=== PATIENT | female | born 1965 | race Caucasian/White ===

== ENCOUNTER 2024-05-28 12:47 | Emergency (ER) | payer BC, SELFPAY ==
[2024-05-28] VITALS (7 sets, daily range): BP systolic 114–153; BP diastolic 66–92; BMI 27.9
[2024-05-28 14:37] LABS: % Basophils 0.6 % (0-2); % Eosinophils 1.1 % (0-6); % Immature Granulocytes 0.1 % (0-0.5); % Lymphocytes 35.3 % (20.5-51.1); % Monocytes 6.6 % (1.7-9.3); % Neutrophils 56.3 % (42.2-75.2); Absolute Eosinophils 0.1 10^3/uL (0-0.7); Absolute Lymphocytes 2.5 10^3/uL (1.2-3.4); Absolute Monocytes 0.5 10^3/uL (0.1-0.6); Hematocrit 39.2 % (37.0-47.0); Hemoglobin 13.2 g/dL (12.0-16.0); Mean Corp Hgb Conc. 33.7 g/dL (33.0-37.0); Mean Corpuscular Hgb 28.6 pg (27.0-31.0); Mean Platelet Volume 9.1 fL (7.4-10.4); Nucleated Red Blood Cells % 0 %; Platelet Count 279 10^3/uL (130-400); Red Blood Cell Count 4.61 10^6/uL (4.20-5.40); Red Cell Dist. Width 12.5 % (11.5-14.5); White Blood Cell Count 7.1 10^3/uL (4.8-10.8)
[2024-05-28 14:51] LABS: ALT (SGPT) 24 U/L (0-35); AST (SGOT) 29 U/L (14-36); Albumin 4.8 g/dl (3.5-5.0); Alkaline Phosphatase 79 U/L (38-126); Blood Urea Nitrogen 13 mg/dl (7-17); Calcium 10.4 mg/dl (8.4-10.2); Carbon Dioxide 21 mmol/L (22-30); Chloride 105 mmol/L (98-107); Glucose 96 mg/dl (70-99); Potassium 4.9 mmol/L (3.5-5.1); Sodium 140 mmol/L (135-145); Total Bilirubin 0.5 mg/dl (0.2-1.3); Total Protein 7.5 g/dl (6.3-8.2); eGFR > 60.00
[2024-05-28 14:53] LABS: Troponin I < 0.012 ng/ml
--- NOTE | 2024-05-28 16:00 | ED.GENMED ---
History of Present Illness
General
Chief Complaint: Fainting/Passed Out
Source: patient and other (Friend)
Time Seen by Provider: 05/28/24 13:56
History of Present Illness
History of Present Illness:
58-year-old female who presents after she had a syncopal event at home. Patient states she was standing at the sink and she fell like she was dreaming and then woke up on the floor. Patient does admit that she has had an abdominal pain on the
right abdomen for several weeks. She feels like is getting a bit worse. Patient did have a heavy feeling in her head and a little bit of a heavy feeling in her chest. Patient went upstairs still felt little lightheaded and sat down. She now
feels much better. She did have a little bit of nausea but bloated. No leg swelling or leg cramping. No hemoptysis. No pleuritic pain.
Past History
Past History
ED Past Medical History: Asthma, Hypothyroidism, Other (migraines ) and Other (Bilateral PE); Negative IDDM
ED Past Surgical History: Appendectomy and Other (cervical CA LEEP proceedure and Right arm surgery for skin cancer)
Patient has exhibited threatening behavior?: No
PSI?: No
Social History
Tobacco: Non-smoker
Alcohol: None
Drug: None
Personal:
Living: with family
Employment: Employed
Family History
Family History: Hypertension
Phy Exam
Physical Exam
Physical Exam:
CONSTITUTIONAL Patient alert and oriented to person, place and time. Well-appearing. Vital signs reviewed.
HEAD atraumatic, normocephalic.
EYES eyelids normal to inspection, Pupils equally round and reactive to light, Extraocular muscles intact, Conjunctiva normal, Sclera normal.
NECK normal range of motion, Trachea midline, no jugular venous distention.
RESPIRATORY CHEST No respiratory distress noted, Chest expansion equal, Bilateral breath sounds clear.
CARDIOVASCULAR regular rate and rhythm, Heart sounds normal.
ABDOMEN moderate right upper quadrant and right mid abdominal tenderness, Bowel sounds normal. No distention.
BACK normal inspection, no obvious deformities
UPPER EXTREMITY range of motion normal, Motor strength normal, no cyanosis, no edema.
LOWER EXTREMITY range of motion normal, Motor strength normal, no cyanosis, no edema.
NEURO Speech normal, No focal motor deficits, Zach coma scale 15, Memory normal, Cranial Nerves intact to screening exam.
SKIN skin warm, dry, and normal in color.
PSYCHIATRIC patient oriented to person place and time, Normal affect.
Course
Orders/Labs/Results
Orders:
Orders
05/28/24 12:52
Electrocardiogram (*1) Urgent
Reason for Study: Syncope
EKG- Treatment ONCE
05/28/24 13:57
Cardiac Monitoring- Treatment ONCE
IV Insert/Care/Rem.- Treatment PRN
05/28/24 14:14
Complete Blood Count/With Diff Urgent
Comprehensive Metabolic Panel Urgent
Troponin I Urgent
05/28/24 14:32
CT Abd/Pel (IV only)-DH only Urgent
Comment:
Reason For Exam: R sided abd pain
05/28/24 16:28
Troponin I Urgent
Abnormal Lab Results
05/28/24
14:14
Carbon Dioxide 21 L mmol/L
(22-30)
Calcium 10.4 H mg/dl
(8.4-10.2)
05/28/24 14:14
05/28/24 14:14
Vital Signs
Initial and Last Documented VS:
Initial Vital Signs
Temp Pulse Resp BP Pulse Ox
98.8 F 89 16 153/92 98
05/28/24 12:49 05/28/24 12:49 05/28/24 12:49 05/28/24 12:49 05/28/24 12:49
Last Documented Vital Signs
Temp Pulse Resp BP Pulse Ox
98.8 F 74 25 117/66 94
05/28/24 12:49 05/28/24 16:15 05/28/24 16:15 05/28/24 16:00 05/28/24 16:15
MDM/Problems Addressed
MDM/Problems Addressed:
Abdominal pain, syncope
*EKG
Interpreted by ED Provider?: Yes
Interpretation: normal
Rate: normal
Rhythm: sinus
Offerle: normal axis
Interval: normal interval
Ischemia: no ischemia
*Batter Mixer Interpretation
Rate: normal
Interpretation: normal
Rhythm: sinus
*Critical Care Note
Total Time (30-74mins, 75-104mins- exclusive of procedures): Not Applicable
Data Reviewed
Review of Other/Old Records Reveals: Discharge Summary (Discharge summary from May 2023 reviewed)
Source: patient
ED Attending Note
-
Portions of this chart may have been created with voice recognition software.� Occasional wrong word or��sound alike� substitutions may have occurred due to the inherent limitations of voice recognition software.
Discharge Plan
Departure
Patient with high blood pressure during this ER visit?: No
Discharge Problem:
Syncope, Abdominal pain
Instructions: Syncope (Fainting) (DC), Abdominal Pain
Prescriptions:
No Action
levothyroxine [Synthroid] 50 MCG tablet
50 mcg PO DAILY
spironolactone 50 MG tablet
75 mg PO DAILY
thyroid (pork) [[place] Thyroid] 30 MG tablet
30 mg PO DAILY
amlodipine [Norvasc] 5 mg Tablet
5 mg DAILY
lisdexamfetamine 60 mg Capsule
60 mg PO DAILY
Ozempic 0.25 mg or 0.5 mg (2 mg/3 mL) Pen Injector
0.25 mg SC QWEEK
Rx Instructions:
for 4 weeks
Referrals:
Conner Greene MD [Family Provider] -
Activity Restrictions/Additional Instructions:
Please see your doctor in the next 2 to 3 days for follow-up and reevaluation. Please consider MiraLAX twice a day for the next 5 days. Return immediately for passing out episode, chest pain, shortness of breath or any other concerns.
Interventions
Interventions:
*Risk Screen - Suicide Last Done: 05/28/24 14:00
*General Assessment Last Done: 05/28/24 14:00
*Neglect/Abuse Screening Last Done: 05/28/24 14:00
ED- Fall Risk Assessment Last Done: 05/28/24 14:00
*ED COVID-19 Vaccine History Last Done: 05/28/24 14:00
ED- Cardiac Assessment Last Done: 05/28/24 14:10
ED- Neurological Assessment Last Done: 05/28/24 14:10
Discharge Date and Time
Print Language: MACEDONIAN
--- NOTE | 2024-05-28 16:47 | EDRN ---
Pt voiding in BR at this time.
--- NOTE | 2024-05-28 16:52 | EDRN ---
Pt denies any pain nor discomfort at this time. Pt is playing games on her smart phone. Pt stated that on getting up initially felt sl weak but put that to lying down so long and after initial feeling pt was fine ambulating w/out any assist to and
from BR.
[2024-05-28 17:07] LABS: Troponin I 0.024 ng/ml
== END 2024-05-28 18:57 | disposition home or self-care (01) ==
LOC: EMR 12:47
PROVIDERS: EMERGENCY PHYSICIAN Emergency Medicine; FAMILY PHYSICIAN Family Medicine
DX: R55 Syncope and collapse (principal); R10.9 Unspecified abdominal pain
CPT/HCPCS: 99285; 74177; 80053; 84484; 85025; 93005; Q9967

== ENCOUNTER → 2025-02-04 07:41 | Outpatient (REF) | payer BC, SELFPAY | LOC: MRI 07:41 | PROVIDERS: ATTENDING PHYSICIAN Physician Assistant Medical | DX: H35.073 Retinal telangiectasis, bilateral (principal); H53.2 Diplopia; H53.8 Other visual disturbances; G43.019 Migraine without aura, intractable, without status migrainosus | CPT/HCPCS: 70553; A9575 ==